=== PATIENT | female | born 1965 | race Caucasian/White ===

== ENCOUNTER 2017-06-14 12:08 | Outpatient (CLI) ==
[2015-12-21 14:01] VITALS: BMI 41.1
[2017-06-14 12:30] LABS: BASOPHILS # (AUTO) 0.1 K/uL (0-0.2); BASOPHILS % (AUTO) 0.8 % (0.0-3.0); EOSINOPHILS # (AUTO) 0.1 K/ul (0.0-0.7); EOSINOPHILS % (AUTO) 1.2 % (0.0-7.0); HEMOGLOBIN 12.5 g/dl (12.0-16.0); IMMATURE GRANULOCYTE % (AUTO) 0.3 % (0.0-5.0); LYMPHOCYTES # (AUTO) 2.7 K/uL (0.60-3.4); LYMPHOCYTES % (AUTO) 35.9 (10.0-50.0); MEAN CORPUSCULAR HGB CONC 33.8 (31.8-35.4); MONOCYTES # (AUTO) 0.7 K/uL (0.4-2.0); MONOCYTES % (AUTO) 9.3 (0-10); NEUTROPHILS # (AUTO) 3.9 K/ul (2.0-6.9); NEUTROPHILS % (AUTO) 52.5; PLATELET COUNT 247 10^3/uL (140-440); RED BLOOD COUNT 4.46 10^6/ul (4.20-5.40); WHITE BLOOD COUNT 7.39 K/ul (4.6-10.2)
--- NOTE | 2017-06-14 12:34 | DI ---
EXAM: Three views of the left foot. History: Left foot pain. Comparison: Left foot radiograph 10/27/2016 Findings: No acute fracture or dislocation. Joint spaces are relatively preserved. Small plantar spur. No radiopaque foreign bodies. Impression: 1. No acute osseous abnormality. 2. Small plantar spur.
--- NOTE | 2017-06-14 12:34 | DI ---
EXAM: Three views of the right foot. History: Right foot pain. Findings: No acute fracture or dislocation. No abnormal calcifications or radiopaque foreign essence s. Small plantar spur. Joint spaces are relatively preserved. Impression: No acute osseous abnormality. Small plantar spur.
[2017-06-14 13:12] LABS: ALBUMIN 3.7 g/dL (3.4-5.0); ALBUMIN/GLOBULIN RATIO 1.12; ANION GAP 12.6; BILIRUBIN,TOTAL 0.39 mg/dL (0.00-1.20); BUN/CREATININE RATIO 14.94; CALCIUM 9.4 mg/dL (8.2-10.2); CHOL/HDL RATIO 4.9 (4.5-5.5); CREATININE 0.87 mg/dL (0.60-1.30); POTASSIUM 3.6 mmol/L (3.5-5.10)
== END 2017-06-14 12:09 | disposition home or self-care (01) ==
LOC: RAD 12:08
PROVIDERS: ATTEND Nurse Practitioner Family
DX: M79.672 Pain in left foot (principal); M79.671 Pain in right foot; R53.83 Other fatigue
CPT/HCPCS: 36415; 80053; 80061; 82306; 84443; 85025

== ENCOUNTER 2017-08-03 12:21 | Outpatient (CLI) ==
[2015-12-21 14:01] VITALS: BMI 41.1
== END 2017-08-03 12:22 | disposition home or self-care (01) ==
LOC: LAB 12:21
PROVIDERS: ATTEND Internal Medicine Endocrinology, Diabetes & Metabolism
DX: D35.2 Benign neoplasm of pituitary gland (principal)
CPT/HCPCS: 36415; 84146

== ENCOUNTER 2017-10-18 11:41 | Outpatient (CLI) ==
[2015-12-21 14:01] VITALS: BMI 41.1
--- NOTE | 2017-10-18 12:08 | DI ---
EXAM: Chest, two views, 10/18/2017 HISTORY: Cough COMPARISON: 07/28/2016 FINDINGS / IMPRESSION: Cardiomediastinal contours appear stable. Basilar interstitial opacitis may relate to atelectasis or pneumonitis. There is no focal pulmonary consolidation. No pleural effusio n or pneumothorax.
[2017-10-18 12:09] LABS: FLU INTERNAL QC INTERNAL QC VALID; RAPID FLU A NEGATIVE (NEGATIVE); RAPID FLU B NEGATIVE (NEGATIVE)
[2017-10-18 17:50] VITALS: BMI 41.9
== END 2017-10-18 11:42 | disposition home or self-care (01) ==
LOC: RAD 11:41
PROVIDERS: ATTEND Nurse Practitioner Family
DX: R05 Cough (principal)
CPT/HCPCS: 87804

== ENCOUNTER 2017-10-18 17:03 | Inpatient (IN) ==
[2017-10-18] MEDS ORDERED: VISTARIL INJ IM PRN (17:32)
[2017-10-18] MEDS ORDERED: TYLENOL PO PRN (17:32)
[2017-10-18] MEDS ORDERED: ATROPINE SULFATE PFS IVP PRN (17:32)
[2017-10-18] MEDS ORDERED: NITROSTAT SL PRN (17:32)
[2017-10-18] MEDS ORDERED: MORPHINE 4 MG/ML VIAL IVP PRN (17:32)
[2017-10-18 17:50] VITALS: BMI 41.9
[2017-10-18] MEDS ORDERED: ROCEPHIN ONE (18:04)
[2017-10-18 18:07] LABS: BASOPHILS % (AUTO) 0.7 % (0.0-3.0); EOSINOPHILS # (AUTO) 0.1 K/ul (0.0-0.7); EOSINOPHILS % (AUTO) 2.6 % (0.0-7.0); HEMATOCRIT 39.8 % (37.0-47.0); HEMOGLOBIN 13.5 g/dl (12.0-16.0); IMMATURE GRANULOCYTE % (AUTO) 0.4 % (0.0-5.0); LYMPHOCYTES # (AUTO) 2.1 K/uL (0.60-3.4); LYMPHOCYTES % (AUTO) 38.9 (10.0-50.0); MEAN CORPUSCULAR HEMOGLOBIN 28.4 pg (27.0-31.0); MEAN CORPUSCULAR HGB CONC 33.9 (31.8-35.4); MEAN CORPUSCULAR VOLUME 83.6 fl (81.0-99.0); MONOCYTES % (AUTO) 17.5 (0-10); NEUTROPHILS # (AUTO) 2.2 K/ul (2.0-6.9); NEUTROPHILS % (AUTO) 39.9; PLATELET COUNT 217 10^3/uL (140-440); RED BLOOD COUNT 4.76 10^6/ul (4.20-5.40); WHITE BLOOD COUNT 5.42 K/ul (4.6-10.2)
[2017-10-18] MEDS ORDERED: SODIUM CHLORIDE 50 ML IV ONE (18:08)
[2017-10-18] MEDS: ROCEPHIN 1 GM in SODIUM CHLORIDE 50 ML IV SCH (18:08)
[2017-10-18] MEDS: SOLU-MEDROL 40 MG IVP SCH ×2 (18:09→21:46)
[2017-10-18] MEDS: TUSSIONEX PO SCH ×2 (18:09→22:06)
[2017-10-18 18:26] LABS: ALBUMIN 3.4 g/dL (3.4-5.0); ALBUMIN/GLOBULIN RATIO 0.87; ANION GAP 13.6; BILIRUBIN,TOTAL 0.3 mg/dL (0.00-1.20); BUN/CREATININE RATIO 12.82; CALCIUM 9.7 mg/dL (8.2-10.2); CREATININE 0.78 mg/dL (0.60-1.30); POTASSIUM 3.6 mmol/L (3.5-5.10); TOTAL PROTEIN 7.3 g/dL (6.4-8.2)
[2017-10-18 18:32] LABS: CREATINE KINASE 90 U/L; MYOGLOBIN 56 ng/ml
[2017-10-18] MEDS ORDERED: ZANTAC ONE (20:33)
[2017-10-18 20:59] LABS: BILIRUBIN,URINE Negative (NEGATIVE); KETONES,URINE Negative (NEGATIVE); LEUKOCYTE ESTERASE ,URINE Negative (NEGATIVE); NITRITE,URINE Negative (NEGATIVE); PH,URINE 6.5 (5-9); PROTEIN,URINE Negative (NEGATIVE); URINE, BLOOD Negative (NEGATIVE)
[2017-10-18 21:00] LABS: ADD URINE MICROSCOPIC NO
[2017-10-18] MEDS ORDERED: NON-FORMULARY MEDICATION (Ranitidine Hcl [Ranitidine Hcl] 300 MG) PO SCH (21:00)
[2017-10-18] MEDS: LOVENOX SUBCUT SCH (21:46)
[2017-10-18] MEDS: DUONEB NEB SCH (22:36)
[2017-10-19 02:24] LABS: CREATINE KINASE 74 U/L; MYOGLOBIN 36 ng/ml
[2017-10-19 04:44] LABS: BASOPHILS % (AUTO) 0.2 % (0.0-3.0); EOSINOPHILS % (AUTO) 0.2 % (0.0-7.0); HEMATOCRIT 39.4 % (37.0-47.0); HEMOGLOBIN 13.2 g/dl (12.0-16.0); IMMATURE GRANULOCYTE % (AUTO) 0.5 % (0.0-5.0); LYMPHOCYTES # (AUTO) 0.8 K/uL (0.60-3.4); LYMPHOCYTES % (AUTO) 18.7 (10.0-50.0); MEAN CORPUSCULAR HEMOGLOBIN 28.3 pg (27.0-31.0); MEAN CORPUSCULAR HGB CONC 33.5 (31.8-35.4); MEAN CORPUSCULAR VOLUME 84.4 fl (81.0-99.0); MONOCYTES # (AUTO) 0.1 K/uL (0.4-2.0); MONOCYTES % (AUTO) 2.3 (0-10); NEUTROPHILS # (AUTO) 3.3 K/ul (2.0-6.9); NEUTROPHILS % (AUTO) 78.1; PLATELET COUNT 233 10^3/uL (140-440); RED BLOOD COUNT 4.67 10^6/ul (4.20-5.40); WHITE BLOOD COUNT 4.27 K/ul (4.6-10.2)
[2017-10-19] MEDS: SOLU-MEDROL 40 MG IVP SCH ×3 (04:53→21:00)
[2017-10-19 05:01] LABS: ALBUMIN 3.3 g/dL (3.4-5.0); ALBUMIN/GLOBULIN RATIO 0.89; ANION GAP 15.3; BILIRUBIN,TOTAL 0.18 mg/dL (0.00-1.20); BUN/CREATININE RATIO 13.92; CALCIUM 8.8 mg/dL (8.2-10.2); CREATININE 0.79 mg/dL (0.60-1.30); POTASSIUM 4.3 mmol/L (3.5-5.10)
[2017-10-19] MEDS: DUONEB NEB SCH ×3 (05:34→22:47)
[2017-10-19] MEDS: ROCEPHIN 1 GM in SODIUM CHLORIDE 50 ML IV SCH (08:29)
[2017-10-19] MEDS: TUSSIONEX PO SCH ×2 (08:30→20:58)
[2017-10-19] MEDS: ASPIRIN EC PO SCH (08:30)
[2017-10-19] MEDS: ZOCOR PO SCH (08:30)
[2017-10-19] MEDS: HYDROCHLOROTHIAZIDE PO SCH (08:30)
[2017-10-19] MEDS: TESSALON PERLES PO SCH ×3 (08:30→20:59)
[2017-10-19] MEDS: LOVENOX SUBCUT SCH (21:00)
[2017-10-19] MEDS ORDERED: ZANTAC PO SCH (21:00)
[2017-10-20] MEDS: DUONEB NEB SCH ×2 (04:34→14:14)
[2017-10-20] MEDS: SOLU-MEDROL 40 MG IVP SCH ×2 (04:46→15:49)
[2017-10-20 06:12] LABS: BASOPHILS % (AUTO) 0.3 % (0.0-3.0); HEMATOCRIT 39.6 % (37.0-47.0); HEMOGLOBIN 13.4 g/dl (12.0-16.0); IMMATURE GRANULOCYTE % (AUTO) 0.8 % (0.0-5.0); LYMPHOCYTES # (AUTO) 1.2 K/uL (0.60-3.4); LYMPHOCYTES % (AUTO) 15.1 (10.0-50.0); MEAN CORPUSCULAR HEMOGLOBIN 28.2 pg (27.0-31.0); MEAN CORPUSCULAR HGB CONC 33.8 (31.8-35.4); MEAN CORPUSCULAR VOLUME 83.2 fl (81.0-99.0); MONOCYTES # (AUTO) 0.4 K/uL (0.4-2.0); NEUTROPHILS # (AUTO) 6.3 K/ul (2.0-6.9); NEUTROPHILS % (AUTO) 78.8; PLATELET COUNT 270 10^3/uL (140-440); RED BLOOD COUNT 4.76 10^6/ul (4.20-5.40); WHITE BLOOD COUNT 7.96 K/ul (4.6-10.2)
[2017-10-20 08:17] LABS: ALBUMIN 3.5 g/dL (3.4-5.0); ALBUMIN/GLOBULIN RATIO 0.95; ANION GAP 18.4; BILIRUBIN,TOTAL 0.25 mg/dL (0.00-1.20); BUN/CREATININE RATIO 18.98; CALCIUM 9.1 mg/dL (8.2-10.2); CREATININE 0.79 mg/dL (0.60-1.30); POTASSIUM 3.4 mmol/L (3.5-5.10); TOTAL PROTEIN 7.2 g/dL (6.4-8.2)
[2017-10-20] MEDS: TESSALON PERLES PO SCH ×2 (08:39→15:48)
[2017-10-20] MEDS: TUSSIONEX PO SCH (08:39)
[2017-10-20] MEDS: ZOCOR PO SCH (08:39)
[2017-10-20] MEDS: HYDROCHLOROTHIAZIDE PO SCH (08:40)
[2017-10-20] MEDS: ASPIRIN EC PO SCH (08:40)
[2017-10-20] MEDS: ROCEPHIN 1 GM in SODIUM CHLORIDE 50 ML IV SCH (08:40)
--- NOTE | 2017-10-20 15:41 | DI ---
Exam: Two x-rays of the chest. Comparison: 10/18/2017. Reason for exam: Pneumonia. FINDINGS: No pneumothorax, pleural effusion, or focal consolidation. The cardiac silhouette is not enlarged. The imaged osseous structures appear grossly unremarkable without acute fracture. Impression: No acute cardiopulmonary process.
[2017-10-20 18:23] VITALS: BP 138/83; TEMP 97
--- NOTE | 2017-10-24 09:16 | PN ---
DATE OF SERVICE: 10/19/17 SUBJECTIVE: The patient was admitted with pneumonitis. She failed outpatient treatment for upper respiratory infection. Ever since the patient was in here getting the antibiotic IV, steroids and breathing treatments, she is feeling a lot better this morning. Coughing up some yellow-green phlegm. Otherwise, no fever, chills, PND or orthopnea. Breathing treatments are helping the patient. REVIEW OF SYSTEMS: CONSTITUTIONAL: No fever, no chills. HEENT: Normal. ENDOCRINE: No weight gain, no weight loss. CVS: No angina symptoms. No CHF symptoms. No palpitations. No atypical chest pain for CAD. No shortness of breath. No PND, no orthopnea. RESPIRATORY: Cough, no hemoptysis. GI: No nausea, no vomiting. No abdominal pain. : No hematuria. No polyuria. MUSCULOSKELETAL:. No joint swelling. PSYCHIATRIC: Not anxious. No depression. No suicidal thoughts. No homicidal thoughts. SKIN: Intact. No rash. PHYSICAL EXAMINATION: V/S: Blood pressure 129/79, respiratory rate 16, heart rate 80, temperature 98.6 , saturation 95 on room air. HEENT: Normocephalic, atraumatic. Mucosa dry. Pallor positive. No icterus. NECK: Supple. No JVD, no carotid bruit. No lymphadenopathy. LUNGS: Decreased and clear. No rales or rhonchi. HEART: S1, S2 normal. No S3. No murmur, gallop or regurgitation. ABDOMEN: Soft, nontender. Bowel sounds active. No rigidity. No rebound or guarding. No CVA tenderness. EXTREMITIES: No clubbing, cyanosis or pedal edema. MUSCULOSKELETAL: No joint swelling. NEUROLOGIC: Awake, alert, oriented times three. No focal deficit. LYMPHATIC: No lymph nodes palpable. SKIN: Intact. LABS: White count 4.27, hemoglobin 13.2, hematocrit 39.4, platelet count 233, sodium 138, potassium 4.3, chloride 106, bicarb 21, BUN 11, creatinine 0.79, glucose 162. ASSESSMENT: 1. COMMUNITY ACQUIRED PNEUMONIA, PNEUMONITIS PROCESS 2. HYPERTENSION 3. DYSLIPIDEMIA 4. OBESITY PLAN: 1. DuoNebs. 2. Lovenox for the DVT prophylaxis. 3. Rocephin 1 gram daily. 4. IV fluids. 5. Solu-Medrol 40 every 8 hours. TIME SPENT: More than 35 minutes today [facility]
--- NOTE | 2017-10-24 09:30 | PN ---
DATE OF SERVICE: 10/20/17 SUBJECTIVE: The patient was admitted with pneumonitis and upper respiratory infection. She also had shortness of breath. She is feeling a lot better. She is still having some cough and congestion and not able to get any phlegm. No fever or chills. REVIEW OF SYSTEMS: CONSTITUTIONAL: No fever, no chills. HEENT: Normal. ENDOCRINE: No weight gain, no weight loss. CVS: No angina symptoms. No CHF symptoms. No palpitations. No atypical chest pain for CAD. Shortness of breath. No PND, no orthopnea. RESPIRATORY: Cough and congestion, no hemoptysis. GI: No nausea, no vomiting. No abdominal pain. : No hematuria. No polyuria. MUSCULOSKELETAL:. No joint swelling. PSYCHIATRIC: Not anxious. No depression. No suicidal thoughts. No homicidal thoughts. SKIN: Intact. No rash. PHYSICAL EXAMINATION: V/S: Blood pressure 133/76, respiratory rate 20, heart rate 79, temperature 98.3 , saturation 94 on room air. HEENT: Normocephalic, atraumatic. Mucosa dry. NECK: Supple. No JVD, no carotid bruit. No lymphadenopathy. LUNGS: Clear to auscultation. No rales or rhonchi. HEART: S1, S2 normal. No S3. No murmur, gallop or regurgitation. ABDOMEN: Soft, nontender. Bowel sounds active. No rigidity. No rebound or guarding. No CVA tenderness. EXTREMITIES: No clubbing, cyanosis or pedal edema. MUSCULOSKELETAL: No joint swelling. NEUROLOGIC: Awake, alert, oriented times three. No focal deficit. LYMPHATIC: No lymph nodes palpable. SKIN: Intact. LABS: White count 7.96, hemoglobin 13.4, hematocrit 39.6, platelet count 270, sodium 138, potassium 3.84, chloride 104, bicarb 19, BUN 15, creatinine 0.79, glucose 163. ASSESSMENT: 1. PNEUMONITIS RIGHT LOWER LOBE 2. OBESITY 3. HYPERTENSION 4. DYSLIPIDEMIA 5. GERD 6. CHOLECYSTECTOMY PLAN: 1. Chest x-ray. 2. Continue Rocephin. 3. DuoNebs. 4. Solu-Medrol. 5. Out of bed to chair. 6. Lovenox for the DVT prophylaxis. TIME SPENT: More than 35 minutes today [facility]
--- NOTE | 2017-10-24 09:54 | DS ---
DATE OF SERVICE: 10/20/17 FINAL DIAGNOSIS: 1. CHRONIC OBSTRUCTIVE PULMONARY DISEASE EXACERBATION SECONDARY TO PNEUMONITIS 2. SHORTNESS OF BREATH SECONDARY TO THE PNEUMONITIS 3. HYPERTENSION 4. DYSLIPIDEMIA 5. GERD 6. TUBAL LIGATION 7. HISTORY OF CHOLECYSTECTOMY PLAN: 1. Discharge the patient home. 2. New medications: Keflex 500 mg twice a day for five days. Prednisone 10 mg twice a day for 10 days. 3. Diet: Cardiac and healthy. 4. Activity: As much as tolerated. 5. Resume home medications of Hydrochlorothiazide, Zantac, Zocor, Cabergoline as scheduled. 6. Exercise, weight loss, diet control and lifestyle modifications were discussed. DISEASE SPECIFIC EDUCATION: About the pneumonitis, need for the pneumonia vaccination, obesity, weight loss were discussed. She verbalized understanding. HOSPITAL COURSE: Arelis Gaviria who is a 52 year old female who was admitted from the office directly. She initially was seeing Mulu Sherwood for the upper respiratory infection. The patient was still coughing, congested and short of breath. Mulu Sherwood got the chest x-ray which showed the pneumonitis. At that time, the patient came to the office and was admitted to the hospital for IV fluids, antibiotics and breathing treatments. With the given treatment of IV antibiotics, the patient started feeling better. She was up and about walking. Repeat chest x-ray showed resolving pneumonitis. At that time the patient was discharged to home. TIME SPENT: MORE THAN 65 MINUTES TODAY [facility]
== END 2017-10-20 20:00 | disposition home or self-care (01) | DRG 194 ==
LOC: MEDSURG B 17:03
PROVIDERS: ADMIT Emergency Medicine; ATTEND Emergency Medicine
DX: J18.9 Pneumonia, unspecified organism (principal); J44.1 Chronic obstructive pulmonary disease with (acute) exacerbation; R06.02 Shortness of breath; I10 Essential (primary) hypertension; E78.5 Hyperlipidemia, unspecified; K21.9 Gastro-esophageal reflux disease without esophagitis; E66.9 Obesity, unspecified; Z98.51 Tubal ligation status; Z90.49 Acquired absence of other specified parts of digestive tract; Z79.899 Other long term (current) drug therapy
CPT/HCPCS: 36415; 80053; 81001; 82550; 83874; 84484; 85025; 93005; 93010; 94640

== ENCOUNTER 2018-03-15 12:27 | Outpatient (CLI) | END 2018-03-15 12:28 | disposition home or self-care (01) | LOC: RHC-LAB 12:27 | PROVIDERS: ATTEND Emergency Medicine | DX: E78.5 Hyperlipidemia, unspecified (principal); I10 Essential (primary) hypertension | CPT/HCPCS: 36415; 80053; 80061; 84443; 85025 ==

== ENCOUNTER 2018-09-12 09:11 | Outpatient (CLI) | END 2018-09-12 09:12 | disposition home or self-care (01) | LOC: RHC-LAB 09:11 | PROVIDERS: ATTEND Nurse Practitioner Family | DX: E78.1 Pure hyperglyceridemia (principal) | CPT/HCPCS: 36415; 80053; 80061 ==

== ENCOUNTER 2019-03-12 07:23 | Outpatient (CLI) | END 2019-03-12 07:24 | disposition home or self-care (01) | LOC: LAB 07:23 | PROVIDERS: ATTEND Nurse Practitioner Family | DX: K21.9 Gastro-esophageal reflux disease without esophagitis (principal); E78.1 Pure hyperglyceridemia | CPT/HCPCS: 36415; 80053; 80061; 84443; 85025 ==

== ENCOUNTER 2019-03-13 09:54 | Outpatient (CLI) | END 2019-03-13 09:55 | disposition home or self-care (01) | LOC: RHC-LAB 09:54 | PROVIDERS: ATTEND Nurse Practitioner Family | DX: D35.2 Benign neoplasm of pituitary gland (principal) | CPT/HCPCS: 36415; 84146 ==